=== PATIENT | female | born 1960 | race African-American/Black ===

== ENCOUNTER 2018-03-01 13:12 | Emergency (ER) | payer OTHER ==
[~2018-03-01] VITALS: Ht 167.6 cm; Wt 97.1 kg
[2018-03-01 14:22] VITALS: BP 168/90
== END 2018-03-01 14:34 | disposition home or self-care (01) ==
LOC: FSED 13:12
DX: M54.2 Cervicalgia (principal); M62.838 Other muscle spasm; I10 Essential (primary) hypertension
CPT/HCPCS: 99283